=== PATIENT | male | born 1955 | race Caucasian/White ===

== ENCOUNTER 2025-02-05 10:00 | Oncology outpatient (recurring) (ONCR) | payer MEDICARE, SELFPAY ==
[2025-01-24 15:30] LABS: Hematocrit 36.2 % (37-53); Hemoglobin 12.30 g/dL (11.27-16.99); Mean Corpuscular HGB Conc 34.0 g/dL (30-55); Mean Corpuscular Hemoglobin 33.9 pg (27-33); Mean Corpuscular Volume 99.7 fl (82-101); Nucleated Red Blood Cells % 0 %; Platelet Count 153 10^3/cmm (157-399); Red Blood Count 3.63 10^6/uL (3.85-5.65); White Blood Count 1.67 10^3/uL (3.29-11.43)
[2025-01-24 15:52] LABS: Alanine Aminotransferase 49 U/L (0-41); Albumin Level 4.6 g/dL (3.5-5.2); Alkaline Phosphatase 100 U/L (40-130); Anion Gap 15.0 (5-19); Aspartate Amino Transferase 32 U/L (0-40); Blood Urea Nitrogen 17 mg/dL (8-23); Calcium 9.5 mg/dL (8.5-10.5); Carbon Dioxide 27 mmol/L (22-29); Chloride 105 mmol/L (98-107); Creatinine Clr Calc Pharmacy 87.9587; Globulin 2.8 g/dL (1.3-4.6); Glucose 131 mg/dL (65-115); Osmolality Calculated 299 mOsm/kg (285-295); Potassium 4.0 mmol/L (3.5-5.1); Sodium 143 mmol/L (136-145); Total Protein 7.4 g/dL (6.6-8.7); Uric Acid 6.0 mg/dL (3.4-7.0)
[2025-01-24 16:21] LABS: Hepatitis B Surface Antigen Non-Reactive (Nonreactive)
--- NOTE | 2025-02-05 10:00 | US_ITS ---
WS: [id number] Abdomen ultrasound, 02/05/2025 Clinical Data: Transsaminitis Comparison: None. Findings: The pancreas shows no cyst, pseudocyst or evidence of pancreatitis. The liver shows no cysts, masses or dilated intrahepatic ducts. The portal vein is normal in size and shows hepatopetal petal flow. The echotexture shows fatty infiltration with minimal hepatomegaly of 18.1 cm. The gallbladder Is absent. The common bile duct is 0.2 cm and no intraductal abnormalities are noted. The right kidney is 11.0 cm. There is an central echogenic focus in the right kidney which does not shadow. This focus could represent a complex cyst. The left kidney is 11.4 cm. No cysts, masses or hydronephrosis is seen. The abdominal aorta is not dilated and the inferior vena cava has normal flow. No vascular abnormalities are seen. The spleen measures 12.1 cm and there are no intrasplenic masses or capsular abnormalities. US/US abdomen complete* [id number] Impression: 1. Absent gallbladder. 2. Hepatomegaly with fatty infiltration of the liver. 3. Small echogenic focus in right kidney which could represent complex cyst.
== END 2025-02-18 23:59 | disposition home or self-care (01) ==
LOC: RAD 02-06 00:01 → ONCMED 02-06 10:44
PROVIDERS: PCP Nurse Practitioner Family; Visit Provider Internal Medicine
DX: R74.01 Elevation of levels of liver transaminase levels; D70.9 Neutropenia, unspecified; Z90.49 Acquired absence of other specified parts of digestive tract; R16.0 Hepatomegaly, not elsewhere classified; K76.0 Fatty (change of) liver, not elsewhere classified; N28.9 Disorder of kidney and ureter, unspecified; Z53.9 Procedure and treatment not carried out, unspecified reason
CPT/HCPCS: 36415; 76700; 80053; 83010; 83615; 84100; 84550; 85025; 85045; 86704; 86705; 86706; 86803; 87340; 99204

== ENCOUNTER 2025-02-28 14:07 | Oncology outpatient (recurring) (ONCR) | payer MEDICARE, SELFPAY ==
[2025-02-28 14:23] LABS: Hematocrit 37.0 % (37-53); Hemoglobin 12.90 g/dL (11.27-16.99); Mean Corpuscular HGB Conc 34.9 g/dL (30-55); Mean Corpuscular Hemoglobin 35.0 pg (27-33); Mean Corpuscular Volume 100.3 fl (82-101); Nucleated Red Blood Cells % 0 %; Platelet Count 155 10^3/cmm (157-399); Red Blood Count 3.69 10^6/uL (3.85-5.65); White Blood Count 1.97 10^3/uL (3.29-11.43)
[2025-02-28 14:43] LABS: Alanine Aminotransferase 62 U/L (0-41); Albumin Level 4.8 g/dL (3.5-5.2); Alkaline Phosphatase 105 U/L (40-130); Anion Gap 16.0 (5-19); Aspartate Amino Transferase 39 U/L (0-40); Blood Urea Nitrogen 16 mg/dL (8-23); Calcium 9.7 mg/dL (8.5-10.5); Carbon Dioxide 27 mmol/L (22-29); Chloride 102 mmol/L (98-107); Globulin 2.8 g/dL (1.3-4.6); Glucose 128 mg/dL (65-115); Osmolality Calculated 295 mOsm/kg (285-295); Potassium 4.0 mmol/L (3.5-5.1); Sodium 141 mmol/L (136-145); Total Protein 7.6 g/dL (6.6-8.7)
== END 2025-03-20 23:59 | disposition home or self-care (01) ==
PROVIDERS: PCP Nurse Practitioner Family; Visit Provider Internal Medicine
DX: D70.9 Neutropenia, unspecified (principal); R74.01 Elevation of levels of liver transaminase levels; R16.0 Hepatomegaly, not elsewhere classified; K76.0 Fatty (change of) liver, not elsewhere classified
CPT/HCPCS: 36415; 80053; 85025; 99213